=== PATIENT | female | born 1930 | race Caucasian/White ===

== ENCOUNTER 2016-09-24 22:16 | Emergency (ER) | payer MEDICARE, OTHER ==
[~2016-09-24 22:16] MED LIST: COREG25 MG PO; DARVOCET-N 1001 EA PO; DARVOCET-N 1001 TAB PO; EQL FISH OIL 1,1 CA1 PO; EXFORGE 5-320 M1 TAB PO; FOSAMAX70 MG PO; HALFPRIN162 MG PO; IMDUR60 MG PO; K-DUR20 MEQ PO; LOPRESSOR100 MG; MAXZIDE 75/50 T1 TAB; MOTRIN; SYNTHROID150 MCG PO; TARKA 4/2401 BOTTLE; VITAMIN D50000 UNIT PO; ZOCOR40 MG
[2016-09-25 00:29] LABS: BASO % 0.6 % (0-2); BASO ABSOLUTE COUNT 0.1 tho/cmm (0.0-0.2); EOS % 4.3 % (0-7); EOSINOPHIL ABSOLUTE COUNT 0.4 tho/cmm (0.0-0.7); HCT-HEMATOCRIT 36.4 % (34.0-49.0); HGB-HEMOGLOBIN 12.3 gm/dl (12.0-15.5); IMMATURE GRANULOCYTES ABSOLUTE 0.02 tho/cmm (0-0.03); IMMATURE GRANULOCYTES PERCENT 0.2 % (0-0.3); LYMPH % 23.3 % (20-45); LYMPH ABSOLUTE COUNT 1.9 tho/cmm (0.8-4.5); MCH (MEAN CORPUSCULAR HGB) 29.2 pg (28.0-32.0); MCHC MEAN CORPUSCULAR HGB CONC 33.8 % (32.0-36.0); MCV (MEAN CELL VOLUME) 86.5 fl (82.0-96.0); MEAN PLATELET VOLUME 10.4 cmc (9.4-12.4); MONO % 11.4 % (0-12); MONOCYTE ABSOLUTE COUNT 0.9 tho/cmm (0.0-1.2); NEUTROPHIL ABSOLUTE COUNT 4.9 tho/cmm (1.6-8.0); NEUTROPHIL-AUTOMATED 4.9 tho/cmm (1.6-8.0); NEUTROPHILS % 60.2 % (40-80); PLATELET COUNT 285 tho/cmm (150-450); RED BLOOD COUNT 4.21 mil/cmm (4.00-5.20); RED CELL DISTRIBUTION WIDTH 14.9 % (12.4-16.4); WHITE BLOOD COUNT 8.2 tho/cmm (4.0-10.0)
[2016-09-25 00:40] LABS: BLOOD UREA NITROGEN 16 mg/dl (6-24); CALCIUM 9.4 mg/dl (8.5-10.5); CARBON DIOXIDE-VENOUS 26 mmol/L (22-32); CHLORIDE 101 mmol/l (96-110); CREATININE 0.88 mg/dl (0.50-1.10); GLUCOSE 104 mg/dL (70-110); SODIUM 135 mmol/L (135-145); eGFR VALUE FOR BLACK 69 mL/Min
[2016-09-25 00:46] LABS: ANION GAP 12 mmol/L (0-20); C-REACTIVE PROTEIN <0.3 mg/dl (0-0.9); POTASSIUM 4.1 mmol/L (3.7-5.1)
[2016-09-25 00:50] LABS: ESR-ERYTHROCYTE SED RATE 11 mm/hr (0-30)
[2016-09-25] MEDS ORDERED: CYCLOBENZAPRINE5 M1 PO (04:11)
== END 2016-09-25 04:25 ==
LOC: EDMED 22:16
PROVIDERS: Emergency Medicine
DX: G44.209 Tension-type headache, unspecified, not intractable (principal); I10 Essential (primary) hypertension; I25.2 Old myocardial infarction; I25.10 Atherosclerotic heart disease of native coronary artery without angina pectoris; G47.33 Obstructive sleep apnea (adult) (pediatric); Z90.49 Acquired absence of other specified parts of digestive tract; Z95.1 Presence of aortocoronary bypass graft
CPT/HCPCS: J1885; J2270; J2360; J7030; Q9967